=== PATIENT | female | born 1945 | race Caucasian/White ===

== ENCOUNTER 2017-07-14 14:40 | Outpatient (CLI) | payer MEDICARE | END 2017-07-14 14:41 | disposition home or self-care (01) | LOC: BICRAD 14:40 | PROVIDERS: ATTEND Family Medicine | DX: M25.561 Pain in right knee (principal); M25.562 Pain in left knee; M25.461 Effusion, right knee ==

== ENCOUNTER 2017-07-17 14:25 | Outpatient (CLI) | payer MEDICARE | END 2017-07-17 14:26 | disposition home or self-care (01) | LOC: BICRAD 14:25 | PROVIDERS: ATTEND Family Medicine | DX: R07.81 Pleurodynia (principal) | CPT/HCPCS: 71111 ==

== ENCOUNTER 2017-11-07 10:47 | Outpatient (CLI) | payer MEDICARE | END 2017-11-07 10:48 | disposition home or self-care (01) | LOC: BICMAMMO 10:47 | PROVIDERS: ATTEND Family Medicine | DX: Z12.31 Encounter for screening mammogram for malignant neoplasm of breast (principal); Z80.3 Family history of malignant neoplasm of breast | CPT/HCPCS: 77063; 77067 ==

== ENCOUNTER 2018-12-16 13:22 | Outpatient (CLI) | payer MEDICARE ==
--- NOTE | 2018-12-22 06:43 | MMO ---
Bilateral MAMMO Bilat Screen [facility]. CLINICAL HISTORY: Patient is 73 years old and is seen for screening. The patient has no family history of breast cancer. The patient has no personal history of cancer. VIEWS: The views performed were: bilateral craniocaudal with tomosynthesis and bilateral mediolateral oblique with tomosynthesis. FILMS COMPARED: The present examination has been compared to prior imaging studies performed at [facility] on 02/18/2014, 08/28/2015, 09/09/2016 and 11/07/2017. MAMMOGRAM FINDINGS: There are scattered fibroglandular densities. There are no suspicious masses, suspicious calcifications, or new areas of architectural distortion. IMPRESSION: THERE IS NO MAMMOGRAPHIC EVIDENCE OF MALIGNANCY. A ROUTINE FOLLOW-UP MAMMOGRAM IN 1 YEAR IS RECOMMENDED. THE RESULTS OF THIS EXAM WERE SENT TO THE PATIENT. ACR BI-RADS Category 1 - Negative MAMMOGRAPHY NOTE: 1. A negative mammogram report should not delay a biopsy if a dominant of clinically suspicious mass is present. 2. Approximately 10% to 15% of breast cancers are not detected by mammography. 3. Adenosis and dense breasts may obscure an underlying neoplasm. Reported by: JAKI FAIRBANKS MD Electonically Signed: [id number]
== END 2018-12-16 13:23 | disposition home or self-care (01) ==
LOC: BICMAMMO 13:22
PROVIDERS: ATTEND Family Medicine
DX: Z12.31 Encounter for screening mammogram for malignant neoplasm of breast (principal)
CPT/HCPCS: 77063; 77067

== ENCOUNTER 2019-03-28 17:25 | Emergency (ER) | payer MEDICARE ==
[2019-03-28] MEDS ORDERED: Morphine 2 MG/ML SYRINGE ONE (18:06)
[2019-03-28] MEDS ORDERED: Ketorolac Tromethamine 30 MG/ML VIAL ONE (18:06)
--- NOTE | 2019-03-28 18:12 | RAD ---
XR Hip Rt 2-3 View History: Fall. Hip pain Comparison: None. Findings: Mild vascular calcifications. No acute displaced fracture or malalignment. The visualized o bturator ring is intact. Impression: No acute fracture or malalignment.
--- NOTE | 2019-03-28 18:13 | RAD ---
XR Hand Lt 3 View STANDARD History: Fall with pain Comparison: None. Findings: There is positive ulnar variance, likely chronic in nature. Widening of the scapholunate in terval. No acute displaced fracture or malalignment. Impression: No acute fracture. Old distal radius fracture.
--- NOTE | 2019-03-28 18:14 | RAD ---
XR Knee Rt 4 View STANDARD History: Pain Comparison: None Findings: No acute fracture or malalignment. No significant joint fluid. Moderate vascular calcificat ions. Impression: No acute osseous abnormality.
--- NOTE | 2019-03-28 18:31 | CT ---
HEAD CT WITHOUT CONTRAST: Date: 03/28/19 COMPARISON: 02/09/13. HISTORY: Fall, head trauma. TECHNIQUE: Axial CT imaging at 5 mm intervals from vertex through skull base without contrast. FINDINGS: The imaged paranasal sinuses and mastoid air cells are well aerated. No displaced calvarial fracture. No intracranial hemorrhage, midline shift, mass effect, or ventricular enlargement. IMPRESSION: No intracranial hemorrhage or displaced calvarial fracture. POS: RONDA
--- NOTE | 2019-03-28 19:16 | CT ---
CT Lower Ext Rt WO Con History: Pain Comparison: Radiograph same day Findings: Nondisplaced fracture through the posterior superior facet of the greater trochanter near t he gluteus medius insertion, likely an incomplete avulsion. There is edema of the right gluteus medius muscle. The femoral head and neck are intact as well as the right obturator ring. The anterior, lateral, and posterior facets are intact as well as the lesser trochanter. Soft tissue contusion of the right lateral thigh. Intrapelvic soft tissues are normal. No pelvic side wall hematoma. Mild vascular calcifications. Impression: Nondisplaced subtle likely avulsion fracture of the posterior superior facet of the right greater trochanter at the gluteus medius tendon insertion.
== END 2019-03-28 23:04 ==
LOC: ERS 17:25
DX: S72.114A Nondisplaced fracture of greater trochanter of right femur, initial encounter for closed fracture (principal); I10 Essential (primary) hypertension; E78.00 Pure hypercholesterolemia, unspecified; F17.210 Nicotine dependence, cigarettes, uncomplicated; W18.30XA Fall on same level, unspecified, initial encounter
CPT/HCPCS: 70450; 96374; 96375; J1885; J2270

== ENCOUNTER 2021-05-21 06:01 | Emergency (ER) | payer OTHER, MEDICARE ==
[2021-05-21] MEDS ORDERED: HYDROcodone/Acetaminophen 10/325 mg Tablet ONE (07:12)
== END 2021-05-21 07:31 | disposition home or self-care (01) ==
LOC: ERS 06:01
DX: S00.83XA Contusion of other part of head, initial encounter (principal); S16.1XXA Strain of muscle, fascia and tendon at neck level, initial encounter; I10 Essential (primary) hypertension; E78.00 Pure hypercholesterolemia, unspecified; F17.210 Nicotine dependence, cigarettes, uncomplicated; W01.0XXA Fall on same level from slipping, tripping and stumbling without subsequent striking against object, initial encounter
CPT/HCPCS: 70450; 72125

== ENCOUNTER 2022-02-15 15:36 | Outpatient (CLI) | payer MEDICARE | END 2022-02-15 15:37 | disposition home or self-care (01) | LOC: BICCT 15:36 | PROVIDERS: ATTEND Family Medicine | DX: Z12.2 Encounter for screening for malignant neoplasm of respiratory organs (principal); F17.210 Nicotine dependence, cigarettes, uncomplicated | CPT/HCPCS: 71271 ==

== ENCOUNTER 2022-04-08 09:11 | Outpatient (CLI) | payer MEDICARE | END 2022-04-08 09:12 | disposition home or self-care (01) | LOC: BICMAMMO 09:11 | PROVIDERS: ATTEND Internal Medicine Rheumatology | DX: M81.8 Other osteoporosis without current pathological fracture (principal) | CPT/HCPCS: 77080 ==

== ENCOUNTER → 2022-04-09 | Outpatient (CLI) | payer MEDICARE | LOC: PET 10:15 | PROVIDERS: ATTEND Family Medicine | DX: R91.1 Solitary pulmonary nodule (principal); J90 Pleural effusion, not elsewhere classified | CPT/HCPCS: 78815; A9552 ==

== ENCOUNTER 2022-04-12 11:30 | Inpatient (IN) | payer MEDICARE ==
[2022-04-12] MEDS ORDERED: Diltiazem 125 MG/25 ML ONE (12:07)
[2022-04-12] MEDS ORDERED: Furosemide 40 MG/4 ML VIAL ONE (12:16)
[2022-04-12 12:21] LABS: #Lymphocytes 0.9 thou/uL (1.20-3.40); #Monocytes 0.5 thou/uL (0.11-0.59); #Neutrophils 6.6 thou/uL (1.40-6.50); %Basophils 0.3 % (0.0-1.0); %Eosinophils 0.3 % (0.0-10.0); %Lymphocytes 11.1 % (21.0-51.0); %Monocytes 6.7 % (0.0-10.0); %Neutrophils 81.7 % (42.0-75.0); Hemoglobin 10.1 g/dL (12.0-16.0); Mean Corpuscular HGB CONC 32.5 g/dL (32.0-36.0); Mean Corpuscular Volume 98.4 fl (78.0-98.0); Mean Platelet Volume 7.7 fL (7.4-10.4); Platelet Count 169 10x3/uL (130-400); RBC Distribution Width 14.1 % (11.5-14.5); Red Blood Cell (RBC) Count 3.15 mill/uL (4.20-5.40); White Blood Cell (WBC) Count 8.1 10x3/uL (4.8-10.8)
[2022-04-12 12:40] LABS: ALT (SGPT) 9 U/L (8-55); AST (SGOT) 12 U/L (5-34); Albumin 3.5 g/dL (3.4-4.8); Alkaline Phosphatase 85 U/L (40-110); Anion Gap 12 mmol/L (10-20); BUN (Urea Nitrogen) 23 mg/dL (9.8-20.1); Bilirubin, Total 0.4 mg/dL (0.2-1.2); Calc. Creatinine Clearance 0 mL/min (70-130); Calcium 8.1 mg/dL (7.8-10.44); Carbon Dioxide 23 mmol/L (23-31); Chloride 108 mmol/L (98-107); Estimated GFR 26; Globulin 2.7 g/dL (2.4-3.5); Glucose 117 mg/dL (83-110); Magnesium 1.7 mg/dL (1.6-2.6); Potassium 4.9 mmol/L (3.5-5.1); Protein, Total 6.2 g/dL (5.8-8.1); Sodium 138 mmol/L (136-145)
[2022-04-12 13:02] LABS: Actual Bicarbonate (HCO3v) 21 mEq/L (22-28); Analyzer IN Cardio ER; Base Excess -5.3 mEq/L (-2.0 to +3.0); Chloride (VBG) 106 mmol/L (98-106); Hemoglobin (Hb) 10.9 g/dL (11.7-16.1); Potassium (VBG) 4.63 mmol/L (3.70-5.30); Sodium 136.3 mmol/L (133-146); pH (venous) 7.29 (7.32-7.43)
[2022-04-12 13:13] LABS: CKMB 2.4 ng/mL (0-6.6)
[2022-04-12] MEDS ORDERED: Enoxaparin Sodium 80 MG/0.8 ML SYRINGE ONE (14:13)
[2022-04-12] MEDS ORDERED: Acetaminophen 325 MG TAB PO PRN (14:32)
[2022-04-12] MEDS ORDERED: Bisacodyl 5 MG TAB PO PRN (14:32)
[2022-04-12] MEDS ORDERED: Ondansetron PF 4 MG/2 ML Vial IVP PRN (14:32)
[2022-04-12 14:42] LABS: SARS-CoV-2 NAA Rapid Test Not Detected (NotDetected)
[2022-04-12 15:36] LABS: Troponin I 0.092 ng/mL (< 0.028)
[2022-04-12 18:36] LABS: Troponin I 0.113 ng/mL (< 0.028)
[2022-04-12] MEDS ORDERED: Cyclobenzaprine 10 MG TAB PO PRN (18:38)
[2022-04-12] MEDS ORDERED: Diltiazem 125 MG in Sodium Chloride 0.9% 100 ML IVPB SCH (18:45)
[2022-04-13 04:25] LABS: #Lymphocytes 1.7 thou/uL (1.20-3.40); #Monocytes 0.6 thou/uL (0.11-0.59); #Neutrophils 4.8 thou/uL (1.40-6.50); %Basophils 0.1 % (0.0-1.0); %Eosinophils 0.3 % (0.0-10.0); %Lymphocytes 23.5 % (21.0-51.0); %Monocytes 8.1 % (0.0-10.0); %Neutrophils 68.1 % (42.0-75.0); Hemoglobin 9.7 g/dL (12.0-16.0); Mean Corpuscular HGB CONC 31.9 g/dL (32.0-36.0); Mean Corpuscular Hemoglobin 31.4 pg (27.0-31.0); Mean Corpuscular Volume 98.6 fl (78.0-98.0); Mean Platelet Volume 8.2 fL (7.4-10.4); Platelet Count 172 10x3/uL (130-400); Red Blood Cell (RBC) Count 3.09 mill/uL (4.20-5.40); White Blood Cell (WBC) Count 7.1 10x3/uL (4.8-10.8)
[2022-04-13 04:39] LABS: Anion Gap 13 mmol/L (10-20); BUN (Urea Nitrogen) 23 mg/dL (9.8-20.1); Calc. Creatinine Clearance 30 mL/min (70-130); Calcium 8.3 mg/dL (7.8-10.44); Carbon Dioxide 22 mmol/L (23-31); Chloride 107 mmol/L (98-107); Estimated GFR 29; Glucose 108 mg/dL (83-110); Potassium 3.9 mmol/L (3.5-5.1); Sodium 138 mmol/L (136-145)
[2022-04-13] MEDS ORDERED: Electrolyte Replacement Protocol 1 EACH FS SCH (08:30)
[2022-04-13] MEDS ORDERED: Electrolyte Replacement Protocol FS PRN (08:45)
[2022-04-13] MEDS ORDERED: Melatonin 3 MG TAB PO PRN (08:57)
[2022-04-13] MEDS ORDERED: Diltiazem 125 MG in Sodium Chloride 0.9% 100 ML IVPB SCH ×2 (08:58→14:42)
[2022-04-13] MEDS ORDERED: Aspirin 325 MG TAB PO SCH (09:00)
[2022-04-13] MEDS: Senokot S 8.6-50 MG TAB PO SCH ×2 (10:19→21:19)
[2022-04-13 11:56] LABS: Magnesium 1.6 mg/dL (1.6-2.6)
[2022-04-13] MEDS ORDERED: Magnesium 2 GM/50 ML(in water) 2 GM in Premix Bag 1 BAG IVPB SCH (12:15)
[2022-04-13] MEDS: HYDROcodone/Acetaminophen 5/325 mg Tablet PO PRN ×2 (12:39→19:45)
[2022-04-13] MEDS ORDERED: Amiodarone 150 MG in Dextrose 5% in Water 100 ML IVPB SCH (15:00)
[2022-04-13] MEDS ORDERED: Digoxin 0.5 MG/2 ML AMP SLOW IVP SCH ×2 (15:15→21:00)
[2022-04-13] MEDS: Amiodarone 450 MG in Dextrose 5% in Water 250 ML IVPB SCH (16:48)
[2022-04-13] MEDS ORDERED: Dronedarone HCl 400 MG TAB PO SCH (17:00)
[2022-04-13] MEDS: Apixaban 5 MG TAB PO SCH (21:19)
[2022-04-13] MEDS: Multivit, Therapeutic 1 TAB PO SCH (21:19)
[2022-04-13] MEDS: Cyanocobalamin (Vitamin B-12) 1,000 MCG TAB PO SCH (21:19)
[2022-04-14] MEDS: HYDROcodone/Acetaminophen 5/325 mg Tablet PO PRN ×4 (01:47→21:43)
[2022-04-14] MEDS ORDERED: Cepastat Lozenges 1 LOZ PO PRN (02:12)
[2022-04-14] MEDS: Guaifenesin DM 100-10/5 ML UDCUP PO PRN ×3 (02:58→20:09)
[2022-04-14] MEDS: Amiodarone 450 MG in Dextrose 5% in Water 250 ML IVPB SCH (03:02)
[2022-04-14 05:02] LABS: #Lymphocytes 1.4 thou/uL (1.20-3.40); #Monocytes 0.6 thou/uL (0.11-0.59); #Neutrophils 5.6 thou/uL (1.40-6.50); %Basophils 0.2 % (0.0-1.0); %Eosinophils 0.6 % (0.0-10.0); %Lymphocytes 17.8 % (21.0-51.0); %Monocytes 8.1 % (0.0-10.0); %Neutrophils 73.3 % (42.0-75.0); Hemoglobin 9.2 g/dL (12.0-16.0); Mean Corpuscular HGB CONC 34.2 g/dL (32.0-36.0); Mean Corpuscular Hemoglobin 33.6 pg (27.0-31.0); Mean Corpuscular Volume 98.4 fl (78.0-98.0); Mean Platelet Volume 7.8 fL (7.4-10.4); Platelet Count 173 10x3/uL (130-400); RBC Distribution Width 13.9 % (11.5-14.5); Red Blood Cell (RBC) Count 2.74 mill/uL (4.20-5.40); White Blood Cell (WBC) Count 7.7 10x3/uL (4.8-10.8)
[2022-04-14 05:22] LABS: Anion Gap 11 mmol/L (10-20); BUN (Urea Nitrogen) 24 mg/dL (9.8-20.1); Calc. Creatinine Clearance 31 mL/min (70-130); Carbon Dioxide 23 mmol/L (23-31); Chloride 107 mmol/L (98-107); Estimated GFR 30; Glucose 118 mg/dL (83-110); Magnesium 2.1 mg/dL (1.6-2.6); Potassium 3.8 mmol/L (3.5-5.1); Sodium 137 mmol/L (136-145)
[2022-04-14] MEDS: Senokot S 8.6-50 MG TAB PO SCH (08:21)
[2022-04-14] MEDS: Apixaban 5 MG TAB PO SCH ×2 (08:21→20:09)
[2022-04-14] MEDS ORDERED: Amoxicillin/Potassium Clav 875 MG TAB PO SCH ×2 (10:15→21:00)
[2022-04-14] MEDS ORDERED: Vancomycin 1 GM in Premix Bag 1 BAG IVPB SCH ×2 (10:30→11:00)
[2022-04-14] MEDS ORDERED: Piperacillin/Tazobactam 3.375 GM in Sodium Chloride 0.9% 100 ML IVPB SCH (10:30)
[2022-04-14] MEDS ORDERED: Cefepime 1 GM in Sodium Chloride 0.9% 100 ML IVPB SCH (10:45)
[2022-04-14] MEDS ORDERED: Furosemide 40 MG/4 ML VIAL SLOW IVP SCH (10:45)
[2022-04-14] MEDS ORDERED: Potassium Chloride 20 MEQ TAB PO SCH (11:00)
[2022-04-14] MEDS ORDERED: Amiodarone 200 MG TAB PO SCH (11:45)
[2022-04-14 11:58] LABS: Digoxin 1.66 ng/mL (0.8-2.0)
[2022-04-14] MEDS ORDERED: Doxycycline 100 MG CAP PO SCH (12:15)
[2022-04-14] MEDS ORDERED: Cephalexin 250 MG CAP PO SCH (12:15)
[2022-04-14] MEDS ORDERED: Polyethylene Glycol 3350 17 GM Packet PO PRN (12:25)
[2022-04-14] MEDS: Furosemide 40 MG TAB PO SCH ×2 (13:29→13:30)
[2022-04-14] MEDS ORDERED: metroNIDAZOLE 500 MG TAB PO SCH (15:00)
[2022-04-14] MEDS: Cephalexin 250 MG CAP PO SCH (20:08)
[2022-04-14] MEDS: Cyanocobalamin (Vitamin B-12) 1,000 MCG TAB PO SCH (20:09)
[2022-04-14] MEDS: Doxycycline 100 MG CAP PO SCH (20:09)
[2022-04-14] MEDS: Melatonin 3 MG TAB PO SCH (20:09)
[2022-04-14] MEDS: Amiodarone 200 MG TAB PO SCH (20:09)
[2022-04-14] MEDS: Magnesium Oxide 400 MG TAB PO SCH (20:09)
[2022-04-14] MEDS: Multivit, Therapeutic 1 TAB PO SCH (20:09)
[2022-04-14] MEDS ORDERED: Polyethylene Glycol 3350 17 GM Packet PO SCH (21:00)
[2022-04-15 05:08] LABS: #Lymphocytes 1.7 thou/uL (1.20-3.40); #Monocytes 0.6 thou/uL (0.11-0.59); #Neutrophils 4.3 thou/uL (1.40-6.50); %Basophils 0.1 % (0.0-1.0); %Eosinophils 0.7 % (0.0-10.0); %Lymphocytes 25.8 % (21.0-51.0); %Neutrophils 64.3 % (42.0-75.0); Hemoglobin 10.3 g/dL (12.0-16.0); Mean Corpuscular HGB CONC 32.8 g/dL (32.0-36.0); Mean Corpuscular Hemoglobin 31.9 pg (27.0-31.0); Mean Corpuscular Volume 97.1 fl (78.0-98.0); Platelet Count 219 10x3/uL (130-400); RBC Distribution Width 13.9 % (11.5-14.5); Red Blood Cell (RBC) Count 3.22 mill/uL (4.20-5.40); White Blood Cell (WBC) Count 6.6 10x3/uL (4.8-10.8)
[2022-04-15 05:28] LABS: Anion Gap 15 mmol/L (10-20); BUN (Urea Nitrogen) 20 mg/dL (9.8-20.1); Calc. Creatinine Clearance 30 mL/min (70-130); Calcium 8.2 mg/dL (7.8-10.44); Carbon Dioxide 23 mmol/L (23-31); Chloride 106 mmol/L (98-107); Estimated GFR 29; Glucose 97 mg/dL (83-110); Potassium 4.1 mmol/L (3.5-5.1); Sodium 140 mmol/L (136-145)
[2022-04-15] MEDS: HYDROcodone/Acetaminophen 5/325 mg Tablet PO PRN ×3 (05:41→20:01)
[2022-04-15] MEDS ORDERED: Furosemide 40 MG/4 ML VIAL SLOW IVP SCH (09:00)
[2022-04-15] MEDS ORDERED: FLU VACC QS2022-23(65YR UP)/PF 240 MCG/0.7 ML SYRINGE IM ONE (09:00)
[2022-04-15] MEDS: Apixaban 5 MG TAB PO SCH ×2 (09:13→20:01)
[2022-04-15] MEDS: Potassium Chloride 20 MEQ TAB PO SCH (09:13)
[2022-04-15] MEDS: Amiodarone 200 MG TAB PO SCH ×2 (09:13→20:00)
[2022-04-15] MEDS: Citrucel 500 MG TAB PO SCH (09:14)
[2022-04-15] MEDS: Cephalexin 250 MG CAP PO SCH ×2 (09:14→20:01)
[2022-04-15] MEDS: Doxycycline 100 MG CAP PO SCH ×2 (09:15→20:01)
[2022-04-15] MEDS: Saccharomyces boulardii 250 MG CAP PO SCH (09:16)
[2022-04-15] MEDS: Magnesium Oxide 400 MG TAB PO SCH ×2 (09:16→20:01)
[2022-04-15] MEDS ORDERED: Senokot S 8.6-50 MG TAB PO PRN (12:17)
[2022-04-15] MEDS: Furosemide 40 MG TAB PO SCH (13:28)
[2022-04-15] MEDS: Multivit, Therapeutic 1 TAB PO SCH (20:01)
[2022-04-15] MEDS: Cyanocobalamin (Vitamin B-12) 1,000 MCG TAB PO SCH (20:01)
[2022-04-16] MEDS: HYDROcodone/Acetaminophen 5/325 mg Tablet PO PRN ×4 (02:53→22:54)
[2022-04-16 04:41] LABS: #Eosinphils 0.1 thou/uL (0.0-0.7); #Lymphocytes 1.5 thou/uL (1.20-3.40); #Monocytes 0.5 thou/uL (0.11-0.59); #Neutrophils 3.4 thou/uL (1.40-6.50); %Basophils 0.5 % (0.0-1.0); %Eosinophils 1.2 % (0.0-10.0); %Lymphocytes 27.7 % (21.0-51.0); %Monocytes 8.7 % (0.0-10.0); %Neutrophils 61.9 % (42.0-75.0); Hemoglobin 9.8 g/dL (12.0-16.0); Mean Corpuscular HGB CONC 32.5 g/dL (32.0-36.0); Mean Corpuscular Hemoglobin 31.8 pg (27.0-31.0); Mean Platelet Volume 8.1 fL (7.4-10.4); Platelet Count 237 10x3/uL (130-400); RBC Distribution Width 13.9 % (11.5-14.5); Red Blood Cell (RBC) Count 3.08 mill/uL (4.20-5.40); White Blood Cell (WBC) Count 5.5 10x3/uL (4.8-10.8)
[2022-04-16 05:04] LABS: Anion Gap 14 mmol/L (10-20); BUN (Urea Nitrogen) 18 mg/dL (9.8-20.1); Calc. Creatinine Clearance 33 mL/min (70-130); Calcium 8.3 mg/dL (7.8-10.44); Carbon Dioxide 26 mmol/L (23-31); Chloride 104 mmol/L (98-107); Estimated GFR 34; Glucose 95 mg/dL (83-110); Magnesium 1.8 mg/dL (1.6-2.6); Potassium 3.9 mmol/L (3.5-5.1); Sodium 140 mmol/L (136-145)
[2022-04-16] MEDS ORDERED: Magnesium 2 GM/50 ML(in water) 2 GM in Premix Bag 1 BAG IVPB SCH (09:00)
[2022-04-16] MEDS: Cephalexin 250 MG CAP PO SCH ×2 (09:39→21:22)
[2022-04-16] MEDS: Citrucel 500 MG TAB PO SCH (09:39)
[2022-04-16] MEDS: Furosemide 40 MG TAB PO SCH ×2 (09:40→14:31)
[2022-04-16] MEDS: Amiodarone 200 MG TAB PO SCH ×2 (09:40→21:23)
[2022-04-16] MEDS: Saccharomyces boulardii 250 MG CAP PO SCH (09:40)
[2022-04-16] MEDS: Apixaban 5 MG TAB PO SCH ×2 (09:40→21:23)
[2022-04-16] MEDS: Potassium Chloride 20 MEQ TAB PO SCH (09:40)
[2022-04-16] MEDS: Doxycycline 100 MG CAP PO SCH ×2 (09:40→21:22)
[2022-04-16] MEDS: Magnesium Oxide 400 MG TAB PO SCH ×2 (09:40→21:22)
[2022-04-16] MEDS: Carvedilol 6.25 MG TAB PO SCH ×2 (09:41→16:29)
[2022-04-16 14:45] VITALS: BMI 28.5
[2022-04-16] MEDS: Melatonin 3 MG TAB PO SCH (21:22)
[2022-04-16] MEDS: Cyanocobalamin (Vitamin B-12) 1,000 MCG TAB PO SCH (21:22)
[2022-04-16] MEDS: Multivit, Therapeutic 1 TAB PO SCH (21:23)
[2022-04-17 04:42] LABS: #Basophils 0.1 thou/uL (0.0-0.2); #Eosinphils 0.1 thou/uL (0.0-0.7); #Monocytes 0.5 thou/uL (0.11-0.59); #Neutrophils 3.6 thou/uL (1.40-6.50); %Basophils 0.9 % (0.0-1.0); %Eosinophils 1.1 % (0.0-10.0); %Lymphocytes 32.3 % (21.0-51.0); %Neutrophils 57.7 % (42.0-75.0); Hemoglobin 11.8 g/dL (12.0-16.0); Mean Corpuscular Hemoglobin 32.3 pg (27.0-31.0); Mean Corpuscular Volume 98.1 fl (78.0-98.0); Mean Platelet Volume 7.7 fL (7.4-10.4); Platelet Count 291 10x3/uL (130-400); RBC Distribution Width 13.9 % (11.5-14.5); Red Blood Cell (RBC) Count 3.66 mill/uL (4.20-5.40); White Blood Cell (WBC) Count 6.2 10x3/uL (4.8-10.8)
[2022-04-17 05:10] LABS: Phosphorus 3.3 mg/dL (2.3-4.7)
[2022-04-17 05:19] LABS: Anion Gap 15 mmol/L (10-20); BUN (Urea Nitrogen) 21 mg/dL (9.8-20.1); Calc. Creatinine Clearance 28 mL/min (70-130); Calcium 8.4 mg/dL (7.8-10.44); Carbon Dioxide 27 mmol/L (23-31); Chloride 101 mmol/L (98-107); Estimated GFR 29; Glucose 108 mg/dL (83-110); Magnesium 2.4 mg/dL (1.6-2.6); Potassium 4.1 mmol/L (3.5-5.1); Sodium 139 mmol/L (136-145)
[2022-04-17] MEDS: HYDROcodone/Acetaminophen 5/325 mg Tablet PO PRN ×3 (06:17→23:24)
[2022-04-17] MEDS ORDERED: Furosemide 40 MG TAB PO SCH (07:30)
[2022-04-17] MEDS: Amiodarone 200 MG TAB PO SCH ×2 (09:57→20:39)
[2022-04-17] MEDS: Magnesium Oxide 400 MG TAB PO SCH ×2 (09:57→20:40)
[2022-04-17] MEDS: Apixaban 5 MG TAB PO SCH ×2 (09:57→20:40)
[2022-04-17] MEDS: Citrucel 500 MG TAB PO SCH (09:57)
[2022-04-17] MEDS: Cephalexin 250 MG CAP PO SCH ×2 (09:57→20:38)
[2022-04-17] MEDS: Doxycycline 100 MG CAP PO SCH (09:57)
[2022-04-17] MEDS: Potassium Chloride 20 MEQ TAB PO SCH (09:57)
[2022-04-17] MEDS: Saccharomyces boulardii 250 MG CAP PO SCH (09:57)
[2022-04-17] MEDS: Carvedilol 6.25 MG TAB PO SCH ×2 (09:57→16:06)
[2022-04-17] MEDS ORDERED: PROPOFOL 200 MG/20 ML VIAL ONE (13:46)
[2022-04-17] MEDS: Multivit, Therapeutic 1 TAB PO SCH (20:38)
[2022-04-17] MEDS: Cyanocobalamin (Vitamin B-12) 1,000 MCG TAB PO SCH (20:40)
[2022-04-17] MEDS: Melatonin 3 MG TAB PO SCH (23:26)
[2022-04-18 05:33] LABS: Anion Gap 11 mmol/L (10-20); BUN (Urea Nitrogen) 25 mg/dL (9.8-20.1); Calc. Creatinine Clearance 26 mL/min (70-130); Calcium 8.3 mg/dL (7.8-10.44); Carbon Dioxide 29 mmol/L (23-31); Chloride 102 mmol/L (98-107); Estimated GFR 27; Glucose 93 mg/dL (83-110); Potassium 4.3 mmol/L (3.5-5.1); Sodium 138 mmol/L (136-145)
[2022-04-18] MEDS: HYDROcodone/Acetaminophen 5/325 mg Tablet PO PRN ×2 (05:45→11:44)
[2022-04-18] MEDS: Amiodarone 200 MG TAB PO SCH (09:46)
[2022-04-18] MEDS: Carvedilol 6.25 MG TAB PO SCH ×2 (09:46→17:19)
[2022-04-18] MEDS: Saccharomyces boulardii 250 MG CAP PO SCH (09:46)
[2022-04-18] MEDS: Apixaban 5 MG TAB PO SCH (09:46)
[2022-04-18] MEDS: Magnesium Oxide 400 MG TAB PO SCH (09:46)
[2022-04-18] MEDS: Citrucel 500 MG TAB PO SCH (09:46)
[2022-04-18] MEDS: Cephalexin 250 MG CAP PO SCH (09:47)
[2022-04-18 15:28] VITALS: BP 170/75; TEMP 97.9
== END 2022-04-18 18:08 | disposition home or self-care (01) | DRG 291 ==
LOC: ERS 11:30 → ERHOLD 13:39 → 2NO 16:54
PROVIDERS: ADMIT Hospitalist; ATTEND Hospitalist
PROC: B24BZZ4 Ultrasonography of Heart with Aorta, Transesophageal (ICD-10-PCS; principal; 2022-04-18)
PROC: 5A2204Z Restoration of Cardiac Rhythm, Single (ICD-10-PCS; 2022-04-18)
DX: I13.0 Hypertensive heart and chronic kidney disease with heart failure and stage 1 through stage 4 chronic kidney disease, or unspecified chronic kidney disease (principal); I50.23 Acute on chronic systolic (congestive) heart failure; N18.4 Chronic kidney disease, stage 4 (severe); L03.113 Cellulitis of right upper limb; N17.9 Acute kidney failure, unspecified; Z20.822 Contact with and (suspected) exposure to COVID-19; I48.91 Unspecified atrial fibrillation; I42.0 Dilated cardiomyopathy; E78.00 Pure hypercholesterolemia, unspecified; E83.42 Hypomagnesemia; K21.9 Gastro-esophageal reflux disease without esophagitis; D63.1 Anemia in chronic kidney disease; Z90.49 Acquired absence of other specified parts of digestive tract; Z88.8 Allergy status to other drugs, medicaments and biological substances; Z79.82 Long term (current) use of aspirin; Z79.899 Other long term (current) drug therapy; Z87.891 Personal history of nicotine dependence; Z86.73 Personal history of transient ischemic attack (TIA), and cerebral infarction without residual deficits
CPT/HCPCS: 36415; 71045; 78451; 80048; 80053; 80162; 82553; 82805; 83605; 83735; 83880; 84100; 84484; 85025; 85379; 87040; 92960; 93005; 93010; 93306; 93312; 93798; 94640; 96372; 96374; 96375; 97139; A9540; J0282; J1160; J1650; J1940; J2704; J3475; J3490; J7070; J7620

== ENCOUNTER 2022-06-19 09:49 | Emergency (ER) | payer MEDICARE ==
[2022-06-19 10:36] LABS: #Monocytes 0.4 thou/uL (0.11-0.59); #Neutrophils 3.1 thou/uL (1.40-6.50); %Basophils 0.7 % (0.0-1.0); %Eosinophils 0.8 % (0.0-10.0); %Lymphocytes 36.4 % (21.0-51.0); %Monocytes 7.4 % (0.0-10.0); %Neutrophils 54.7 % (42.0-75.0); Hemoglobin 11.4 g/dL (12.0-16.0); Mean Corpuscular HGB CONC 33.2 g/dL (32.0-36.0); Mean Corpuscular Hemoglobin 30.7 pg (27.0-31.0); Mean Corpuscular Volume 92.6 fl (78.0-98.0); Mean Platelet Volume 7.9 fL (7.4-10.4); Platelet Count 207 10x3/uL (130-400); RBC Distribution Width 14.4 % (11.5-14.5); White Blood Cell (WBC) Count 5.6 10x3/uL (4.8-10.8)
[2022-06-19 10:55] LABS: ALT (SGPT) Less than 7 U/L (8-55); AST (SGOT) 13 U/L (5-34); Albumin 3.5 g/dL (3.4-4.8); Alkaline Phosphatase 61 U/L (40-110); Anion Gap 11 mmol/L (10-20); BUN (Urea Nitrogen) 17 mg/dL (9.8-20.1); Bilirubin, Total 0.8 mg/dL (0.2-1.2); Calc. Creatinine Clearance 0 mL/min (70-130); Calcium 8.4 mg/dL (7.8-10.44); Carbon Dioxide 27 mmol/L (23-31); Chloride 103 mmol/L (98-107); Estimated GFR 28; Globulin 2.6 g/dL (2.4-3.5); Glucose 91 mg/dL (83-110); Lipase 13 U/L (8-78); Potassium 4.1 mmol/L (3.5-5.1); Protein, Total 6.1 g/dL (5.8-8.1); Sodium 137 mmol/L (136-145)
[2022-06-19] MEDS ORDERED: Carvedilol 6.25 MG TAB PO SCH (13:00)
[2022-06-19 13:10] LABS: Bilirubin Negative (Negative); Blood, Urine Negative (Negative); Clarity Turbid (Clear); Glucose, Urine (Dipstick) Normal (Negative); Ketone, Urine Negative (Negative); Leukocyte 75 Leu/uL (Negative); Nitrite Negative (Negative); Protein, Urine (Dipstick) 20 mg/dL (Neg-Trace); RBC/HPF 0-3 HPF (0-3); Specific Gravity, Urine 1.013 (1.002-1.036); Urobilinogen Normal mg/dL (Less than 2); pH, Urine 7.5 (5.0-9.0)
[2022-06-19 13:11] LABS: Bacteria/HPF 1+ HPF (None Seen)
== END 2022-06-19 14:33 | disposition home or self-care (01) ==
LOC: ERS 09:49
DX: N39.0 Urinary tract infection, site not specified (principal); I10 Essential (primary) hypertension; F17.210 Nicotine dependence, cigarettes, uncomplicated
CPT/HCPCS: 36415; 71045; 80053; 81003; 81015; 83690; 84484; 85025; 93005

== ENCOUNTER 2022-07-28 22:34 | Emergency (ER) | payer MEDICARE ==
[2022-07-28] MEDS ORDERED: HYDROcodone/Acetaminophen 5/325 mg Tablet ONE (23:48)
[2022-07-29] MEDS ORDERED: Morphine 4 MG/ML VIAL ONE (02:15)
== END 2022-07-29 02:55 | disposition home or self-care (01) ==
LOC: ERS 22:34
DX: S42.032A Displaced fracture of lateral end of left clavicle, initial encounter for closed fracture (principal); S09.90XA Unspecified injury of head, initial encounter; E78.00 Pure hypercholesterolemia, unspecified; I10 Essential (primary) hypertension; F17.210 Nicotine dependence, cigarettes, uncomplicated; W06.XXXA Fall from bed, initial encounter
CPT/HCPCS: 70450; 72125; 96372; J2270

== ENCOUNTER 2023-03-24 10:20 | Inpatient (IN) | payer MEDICARE ==
[2023-03-24 11:12] LABS: #Basophils 0.1 thou/uL (0.0-0.2); #Eosinphils 0.1 thou/uL (0.0-0.7); #Monocytes 0.5 thou/uL (0.11-0.59); #Neutrophils 2.4 thou/uL (1.40-6.50); %Basophils 0.9 % (0.0-1.0); %Eosinophils 2.5 % (0.0-10.0); %Lymphocytes 42.3 % (21.0-51.0); %Monocytes 8.5 % (0.0-10.0); %Neutrophils 45.4 % (42.0-75.0); Hematocrit 27.2 % (36.0-47.0); Hemoglobin 8.7 g/dL (12.0-16.0); Mean Corpuscular Hemoglobin 33.1 pg (27.0-31.0); Mean Corpuscular Volume 103.4 fl (78.0-98.0); Mean Platelet Volume 9.6 fL (7.4-10.4); Platelet Count 233 10x3/uL (130-400); RBC Distribution Width 13.4 % (11.5-14.5); Red Blood Cell (RBC) Count 2.63 mill/uL (4.20-5.40); White Blood Cell (WBC) Count 5.3 10x3/uL (4.8-10.8)
[2023-03-24 11:36] LABS: ALT (SGPT) 7 U/L (8-55); AST (SGOT) 14 U/L (5-34); Albumin 2.7 g/dL (3.4-4.8); Alkaline Phosphatase 74 U/L (40-110); Anion Gap 11 mmol/L (10-20); BUN (Urea Nitrogen) 20 mg/dL (9.8-20.1); Bilirubin, Total 0.2 mg/dL (0.2-1.2); Calc. Creatinine Clearance 0 mL/min (70-130); Calcium 8.2 mg/dL (7.8-10.44); Carbon Dioxide 25 mmol/L (23-31); Chloride 107 mmol/L (98-107); Estimated GFR 29; Globulin 2.7 g/dL (2.4-3.5); Glucose 98 mg/dL (83-110); Protein, Total 5.4 g/dL (5.8-8.1); Sodium 138 mmol/L (136-145)
[2023-03-24 11:39] LABS: Troponin I Less than 0.010 ng/mL (< 0.028)
[2023-03-24 12:12] LABS: Lipase 32 U/L (8-78); Magnesium 2.1 mg/dL (1.6-2.6)
[2023-03-24] MEDS ORDERED: Acetaminophen 325 MG TAB ONE (12:30)
[2023-03-24 13:03] LABS: Bacteria/HPF 3+ HPF (None Seen); Bilirubin Negative (Negative); Blood, Urine Trace (Negative); CAUTI Indications for Culture Dysuria,urgency,freq; Clarity Clear (Clear); Glucose, Urine (Dipstick) Normal (Negative); Ketone, Urine Negative (Negative); Leukocyte 500 Leu/uL (Negative); Nitrite Negative (Negative); Protein, Urine (Dipstick) Negative (Neg-Trace); Specific Gravity, Urine 1.015 (1.002-1.036); Squamous Epithelial None Seen HPF (0-3); Urobilinogen Normal mg/dL (Less than 2); WBC/HPF 21-50 HPF (0-3); pH, Urine 5.5 (5.0-9.0)
[2023-03-24 13:05] LABS: Urine Culture Reflex Yes Yes
[2023-03-24] MEDS ORDERED: cefTRIAXone (ROCEPHIN) 1 GM VIAL ONE (13:52)
[2023-03-24] MEDS ORDERED: Sodium Chloride 0.9% 100 ML ONE (13:52)
[2023-03-24] MEDS ORDERED: Nitroglycerin 0.4 MG TAB (25 Tab Bottle) SL PRN (14:18)
[2023-03-24] MEDS ORDERED: Ondansetron ODT 4 MG TAB PO PRN (14:21)
[2023-03-24] MEDS ORDERED: Ondansetron PF 4 MG/2 ML Vial IVP PRN (14:21)
[2023-03-24 16:07] VITALS: BMI 22.3
[2023-03-24] MEDS: Acetaminophen 325 MG TAB PO PRN ×2 (16:35→20:42)
[2023-03-24 17:45] LABS: Troponin I Less than 0.010 ng/mL (< 0.028)
[2023-03-24] MEDS: NIFEdipine XL 30 MG ER.TAB PO SCH (20:42)
[2023-03-24] MEDS: Apixaban 5 MG TAB PO SCH (20:42)
[2023-03-24] MEDS: levETIRAcetam 500 mg/5 ml Oral Solution PO SCH (20:44)
[2023-03-24 21:35] LABS: Troponin I Less than 0.010 ng/mL (< 0.028)
[2023-03-24 23:07] LABS: Amphetamine Not Detected (NotDetected); Barbiturates Screen Not Detected (NotDetected); Benzodiazepine Screen Not Detected (NotDetected); Cocaine Metabolite Screen Not Detected (NotDetected); Methadone Not Detected (NotDetected); Methamphetamine Not Detected (NotDetected); Opiate Screen Not Detected (NotDetected); Oxycodone Screen Not Detected (NotDetected); Phencyclidine (PCP) Not Detected (NotDetected); THC/Cannabinoid Screen Not Detected (NotDetected); Tricyclic Screen Not Detected (NotDetected)
[2023-03-25] MEDS: cloNIDine 0.2 MG TAB PO PRN ×2 (01:12→14:23)
[2023-03-25 04:32] LABS: #Eosinphils 0.2 thou/uL (0.0-0.7); #Monocytes 0.5 thou/uL (0.11-0.59); %Basophils 0.5 % (0.0-1.0); %Lymphocytes 37.7 % (21.0-51.0); %Monocytes 7.8 % (0.0-10.0); %Neutrophils 50.8 % (42.0-75.0); Hematocrit 23.8 % (36.0-47.0); Hemoglobin 7.5 g/dL (12.0-16.0); Mean Corpuscular HGB CONC 31.5 g/dL (32.0-36.0); Mean Corpuscular Hemoglobin 32.6 pg (27.0-31.0); Mean Corpuscular Volume 103.5 fl (78.0-98.0); Mean Platelet Volume 10.2 fL (7.4-10.4); Platelet Count 226 10x3/uL (130-400); RBC Distribution Width 13.4 % (11.5-14.5); White Blood Cell (WBC) Count 5.9 10x3/uL (4.8-10.8)
[2023-03-25 05:06] LABS: Anion Gap 11 mmol/L (10-20); BUN (Urea Nitrogen) 21 mg/dL (9.8-20.1); Calc. Creatinine Clearance 21 mL/min (70-130); Calcium 7.9 mg/dL (7.8-10.44); Carbon Dioxide 25 mmol/L (23-31); Chloride 108 mmol/L (98-107); Estimated GFR 27; Glucose 88 mg/dL (83-110); Potassium 4.9 mmol/L (3.5-5.1); Sodium 139 mmol/L (136-145)
[2023-03-25] MEDS: Acetaminophen 325 MG TAB PO PRN (06:04)
[2023-03-25] MEDS: Aspirin 81 mg Enteric Coated Tablet PO SCH (08:48)
[2023-03-25] MEDS: Apixaban 5 MG TAB PO SCH (08:48)
[2023-03-25] MEDS: NIFEdipine XL 30 MG ER.TAB PO SCH ×2 (08:48→20:38)
[2023-03-25] MEDS: levETIRAcetam 500 mg/5 ml Oral Solution PO SCH ×2 (08:48→20:38)
[2023-03-25] MEDS ORDERED: Aspirin Chewable 81 MG TAB PO SCH (09:00)
[2023-03-25] MEDS ORDERED: Amiodarone 200 MG TAB PO SCH (09:00)
[2023-03-25] MEDS ORDERED: Regadenoson 0.4 MG/5 ML SYRINGE ONE (10:35)
[2023-03-25] MEDS: cefTRIAXone\\ROCEPHIN 1 GM in Sodium Chloride 0.9% 100 ML IVPB SCH (13:33)
[2023-03-25] MEDS: Lactated Ringer's 1,000 ML IV SCH (18:13)
[2023-03-25] MEDS ORDERED: Melatonin 3 MG TAB PO PRN (20:23)
[2023-03-25] MEDS: hydrALAZINE 10 MG TAB PO SCH (20:38)
[2023-03-25] MEDS: Apixaban 2.5 MG TAB PO SCH (20:38)
[2023-03-26 04:05] LABS: #Basophils 0.1 thou/uL (0.0-0.2); #Eosinphils 0.2 thou/uL (0.0-0.7); #Monocytes 0.5 thou/uL (0.11-0.59); #Neutrophils 2.6 thou/uL (1.40-6.50); %Basophils 0.9 % (0.0-1.0); %Eosinophils 3.2 % (0.0-10.0); %Lymphocytes 39.9 % (21.0-51.0); %Monocytes 8.9 % (0.0-10.0); %Neutrophils 46.7 % (42.0-75.0); Hematocrit 26.3 % (36.0-47.0); Hemoglobin 8.2 g/dL (12.0-16.0); Mean Corpuscular HGB CONC 31.2 g/dL (32.0-36.0); Mean Corpuscular Hemoglobin 31.8 pg (27.0-31.0); Mean Corpuscular Volume 101.9 fl (78.0-98.0); Mean Platelet Volume 10.1 fL (7.4-10.4); Platelet Count 231 10x3/uL (130-400); RBC Distribution Width 13.2 % (11.5-14.5); Red Blood Cell (RBC) Count 2.58 mill/uL (4.20-5.40); White Blood Cell (WBC) Count 5.6 10x3/uL (4.8-10.8)
[2023-03-26] MEDS: cloNIDine 0.2 MG TAB PO PRN ×2 (06:03→18:30)
[2023-03-26 07:55] LABS: Anion Gap 14 mmol/L (10-20); BUN (Urea Nitrogen) 18 mg/dL (9.8-20.1); Calc. Creatinine Clearance 25 mL/min (70-130); Carbon Dioxide 24 mmol/L (23-31); Chloride 106 mmol/L (98-107); Estimated GFR 34; Glucose 77 mg/dL (83-110); Potassium 4.5 mmol/L (3.5-5.1); Sodium 139 mmol/L (136-145)
[2023-03-26] MEDS: Aspirin 81 mg Enteric Coated Tablet PO SCH (08:36)
[2023-03-26] MEDS: NIFEdipine XL 30 MG ER.TAB PO SCH ×2 (08:36→20:15)
[2023-03-26] MEDS: Lisinopril 5 MG TAB PO SCH (08:38)
[2023-03-26] MEDS: Apixaban 2.5 MG TAB PO SCH ×2 (08:38→20:15)
[2023-03-26] MEDS: levETIRAcetam 500 mg/5 ml Oral Solution PO SCH ×2 (08:38→20:15)
[2023-03-26] MEDS: hydrALAZINE 10 MG TAB PO SCH ×3 (08:39→20:15)
[2023-03-26] MEDS: Lactated Ringer's 1,000 ML IV SCH (11:20)
[2023-03-26] MEDS: cefTRIAXone\\ROCEPHIN 1 GM in Sodium Chloride 0.9% 100 ML IVPB SCH (14:13)
[2023-03-26] MEDS ORDERED: Melatonin 3 MG TAB PO SCH (15:00)
[2023-03-26] MEDS: Acetaminophen 325 MG TAB PO PRN (18:28)
[2023-03-27] MEDS: Acetaminophen 325 MG TAB PO PRN ×2 (01:54→08:05)
[2023-03-27 07:43] VITALS: TEMP 98.5
[2023-03-27] MEDS: NIFEdipine XL 30 MG ER.TAB PO SCH (08:06)
[2023-03-27] MEDS: Lisinopril 5 MG TAB PO SCH (08:06)
[2023-03-27] MEDS: hydrALAZINE 10 MG TAB PO SCH (08:06)
[2023-03-27] MEDS: Aspirin 81 mg Enteric Coated Tablet PO SCH (08:06)
[2023-03-27] MEDS: Apixaban 2.5 MG TAB PO SCH (08:07)
[2023-03-27] MEDS: levETIRAcetam 500 mg/5 ml Oral Solution PO SCH (08:07)
[2023-03-27 08:11] VITALS: BP 166/71
[2023-03-27] MEDS ORDERED: Cefdinir 300 MG CAP PO SCH (09:00)
== END 2023-03-27 10:16 | disposition home health service (06) | DRG 309 ==
LOC: ERS 10:20 → 2NO 14:06 → OBSVTOIN 03-25 17:07
PROVIDERS: ADMIT Family Medicine; ATTEND Hospitalist
DX: I48.0 Paroxysmal atrial fibrillation (principal); I13.0 Hypertensive heart and chronic kidney disease with heart failure and stage 1 through stage 4 chronic kidney disease, or unspecified chronic kidney disease; I69.351 Hemiplegia and hemiparesis following cerebral infarction affecting right dominant side; I50.22 Chronic systolic (congestive) heart failure; N17.9 Acute kidney failure, unspecified; N39.0 Urinary tract infection, site not specified; G40.909 Epilepsy, unspecified, not intractable, without status epilepticus; E78.5 Hyperlipidemia, unspecified; F17.210 Nicotine dependence, cigarettes, uncomplicated; N18.9 Chronic kidney disease, unspecified; B96.20 Unspecified Escherichia coli [E. coli] as the cause of diseases classified elsewhere; Z71.6 Tobacco abuse counseling; D64.9 Anemia, unspecified; J44.9 Chronic obstructive pulmonary disease, unspecified; R00.1 Bradycardia, unspecified; Z79.899 Other long term (current) drug therapy; Z79.01 Long term (current) use of anticoagulants; Z79.82 Long term (current) use of aspirin; Z88.8 Allergy status to other drugs, medicaments and biological substances; Z90.49 Acquired absence of other specified parts of digestive tract; Z98.890 Other specified postprocedural states
CPT/HCPCS: 36415; 36416; 71045; 78452; 80048; 80053; 80306; 81001; 83605; 83690; 83735; 83880; 84443; 84484; 85025; 87040; 87077; 87086; 87186; 93005; 93017; 94760; 96365; 96376; A9502; G0378; J0696; J2785; J3490; J7120

== ENCOUNTER 2023-05-29 13:09 | Emergency (ER) | payer MEDICARE ==
[2023-05-29] MEDS ORDERED: Morphine 4 MG/ML VIAL ONE (14:44)
[2023-05-29] MEDS ORDERED: Ondansetron PF 4 MG/2 ML Vial ONE (14:44)
[2023-05-29] MEDS ORDERED: hydrALAZINE 20 MG/ML VIAL ONE (14:44)
== END 2023-05-29 18:12 | disposition home or self-care (01) ==
LOC: ERS 13:09
DX: S09.90XA Unspecified injury of head, initial encounter (principal); S76.011A Strain of muscle, fascia and tendon of right hip, initial encounter; S86.911A Strain of unspecified muscle(s) and tendon(s) at lower leg level, right leg, initial encounter; S00.03XA Contusion of scalp, initial encounter; I10 Essential (primary) hypertension; I48.91 Unspecified atrial fibrillation; F17.210 Nicotine dependence, cigarettes, uncomplicated; W06.XXXA Fall from bed, initial encounter; Y93.89 Activity, other specified; Z86.73 Personal history of transient ischemic attack (TIA), and cerebral infarction without residual deficits; Z79.01 Long term (current) use of anticoagulants; Z79.82 Long term (current) use of aspirin; Z79.899 Other long term (current) drug therapy
CPT/HCPCS: 70450; 72125; 72170; 73030; 73502; 73564; J0360; 96374; 96375; J2270; J2405